=== PATIENT | male | born 1995 | race African-American/Black ===

== ENCOUNTER 2024-05-17 21:30 | Emergency (ER) | payer OTHER ==
--- NOTE | 2024-05-17 21:45 | ED Physician Documentation ---
History of Present Illness - Stated complaint Stated Complaint: RASH - Additonal information Additional information: Patient is [id number] male presents to the rash anterior chest and right side face. He notes symptoms have been going on for the past few days but now has gone to his anterior shoulders. He notes wound has formed into a vesicle but the others have been large red bumps. He notes he recently shaved his chest and his face as he is returning back to work. He notes pruritus to his anterior chest but no other symptoms. He denies any fevers chills. He notes he often gets folliculitis to his face but does not take anything for it. PD PAST MEDICAL HISTORY - Present Medications Home Medications: Ambulatory Orders Medication Instructions Recorded Confirmed Clotrimazole 1% Cream [Lotrimin 1% 15 gm TOP BID #20 ml 05/17/24 Cream] Doxycycline [Vibramycin] 100 mg PO BID #14 tablet 05/17/24 - Allergies Allergies/Adverse Reactions: Allergies Allergy/AdvReac Type Severity Reaction Status Date / Time Penicillins Allergy Hives Verified 05/17/24 21:38 PD ED PE NORMAL - Vitals Vital signs reviewed: Yes - General General: Alert and oriented X 3 - HEENT HEENT: Atraumatic - Neck Neck: Supple, no meningeal sign - Cardiac Cardiac: RRR, No murmur, No gallop, No rub - Respiratory Respiratory: No respiratory distress, Clear bilaterally - Abdomen Abdomen: Normal bowel sounds - Derm Derm: Other (Rash appreciated to anterior chest with multiple vesicles and papules. No significant excoriations. No significant discharge. There appears to be 2 vesicles to bilateral anterior shoulders. Multiple lesions also noted to right face under bedoya on examination. No tenderness warmth/erythema) PD Medical Decision Making - ED course ED course: Patient is a 28-year-old male presents to the emergency department with rash to anterior chest. Patient denies any significant pain no tenderness no fevers or chills. He notes this occurred a few days ago and has progressively worsened to his anterior shoulders as well. He denies ever having the symptoms before. His recently did shave his chest and his face. He notes he usually gets folliculitis after shaving his face but this has never happened to his chest. Patient denies any significant pain with that but does note some pruritus with that. He has not taking anything other than hydrocortisone cream to help with the pruritus for his symptoms. Rash appreciated to anterior chest with multiple vesicles and papules. No significant excoriations. No significant discharge. There appears to be 2 vesicles to bilateral anterior shoulders. Multiple lesions also noted to right face under bedoya on examination. No tenderness warmth/erythema Discussed case with patient and will give oral antibiotics and topical antifungal to help with symptoms. Symptoms most likely secondary to folliculitis or tinea barbae. Discussed with patient apply and topical cream and oral antibiotics for the next few days to help his symptoms. If he develops any fevers worsening pain significant wounds or extensive spreading of rash to his body he should return to emergency department. Patient understands and is agreeable with this plan. Departure - Departure Disposition: 01 Home, Self Care Clinical Impression: Folliculitis, Tinea barbae Condition: Good Comments: You were seen here in the emergency department for your rash to your chest and lower face. Symptoms most likely secondary to something called folliculitis. I have started you on oral antibiotics please take as prescribed. I have also given you topical antifungal to cover for any possible fungal infection. Please take as prescribed. If you develop any fevers worsening redness warmthYou should return to the emergency department. Please follow-up with PCP in 1 week to ensure resolution of symptoms.
[2024-05-17 21:46] VITALS: BP 154/91; O2SAT 99
== END 2024-05-17 22:03 | disposition home or self-care (01) ==
LOC: ED 21:30
DX: L73.9 Follicular disorder, unspecified (principal); B35.0 Tinea barbae and tinea capitis
CPT/HCPCS: 99282; 99283